=== PATIENT | female | born 1965 | race Caucasian/White ===

== ENCOUNTER → 2017-08-18 | Outpatient (CLI) | payer BC ==
--- NOTE | 2017-08-20 11:45 | MM ---
Reason for exam: screening (asymptomatic). Last mammogram was performed 1 year ago. History: Patient has history of other cancer at age 39 and had first child after 29. Physical Findings: A clinical breast exam by your physician is recommended on an annual basis and results should be correlated with mammographic findings. MG 3D Screening Mammo W/Cad Bilateral CC and MLO view(s) were taken. Prior study comparison: August 16, 2016, bilateral MG 3d screening mammo w/cad. December 05, 2010, bilateral digital screening mammo w/CAD. The breast tissue is extremely dense which could obscure a lesion on mammography. There is chronic nodularity bilaterally. No significant changes when compared with prior studies. ASSESSMENT: Benign, BI-RAD 2 RECOMMENDATION: Routine screening mammogram of both breasts in 1 year.
== END | disposition home or self-care (01) ==
LOC: RADMAMWWP 07:58
PROVIDERS: ATTEND Obstetrics & Gynecology
DX: Z12.31 Encounter for screening mammogram for malignant neoplasm of breast (principal)
CPT/HCPCS: 77063; G0202

== ENCOUNTER → 2020-03-28 | Outpatient (CLI) | payer BC ==
[2020-03-28 10:14] LABS: T4, Free (Free Thyroxine) 1.21 ng/dL (0.78-2.19)
--- NOTE | 2020-03-28 10:43 | MM ---
Reason for exam: clinical finding. Last mammogram was performed 2 years and 7 months ago. History: Patient has history of other cancer at age 39 and had first child at age 35. Took hormonal contraceptives for 5 years beginning at age 25. Indicated problem(s): pain in both breasts. Physical Findings: Nurse did not find any significant physical abnormalities on exam. MG 3D Diag Mammo W/Cad JERRICA Bilateral CC and MLO view(s) were taken. Prior study comparison: August 18, 2017, bilateral MG 3d screening mammo w/cad. August 16, 2016, bilateral MG 3d screening mammo w/cad. The breast tissue is heterogeneously dense. This may lower the sensitivity of mammography. Waxing and waning lesions consistent with cysts. No significant new findings when compared with previous films. These results were verbally communicated with the patient and result sheet given to the patient on 03/28/20. ASSESSMENT: Benign, BI-RAD 2 RECOMMENDATION: Routine screening mammogram of both breasts in 1 year. Manage patient on a clinical basis.
== END | disposition home or self-care (01) ==
LOC: RADMAMWWP 08:08
PROVIDERS: ATTEND Obstetrics & Gynecology
DX: N64.4 Mastodynia (principal); N63.10 Unspecified lump in the right breast, unspecified quadrant; N63.20 Unspecified lump in the left breast, unspecified quadrant; N93.8 Other specified abnormal uterine and vaginal bleeding; Z13.29 Encounter for screening for other suspected endocrine disorder
CPT/HCPCS: 77062; 77066; 84439; 84443

== ENCOUNTER → 2021-01-31 | Outpatient (CLI) | payer BC ==
--- NOTE | 2021-01-31 21:03 | CONS ---
CONSULTATION DATE OF SERVICE: 01/31/2021. 55-year-old lady has been evaluated in Sleep Center for loud snoring and possible obstructive sleep apnea-hypopnea syndrome. HISTORY OF PRESENT ILLNESS/SLEEP WAKE EVALUATION: SLEEP SCHEDULE: Patient's usual sleep schedule from 10 or 11 p.m. to 6:30/6:45 a.m. FALLING ASLEEP: No problems with falling asleep, although she has TV in bedroom. She sleeps in different positions including back and side. She increased loudness of her snoring recently. She wakes up from sleep 2 times with nocturia and grinding teeth. No history of hypnagogic hallucinations, sleep paralysis or cataplexy. Occasionally, she takes naps, usually Friday afternoons. [place] Sleepiness Scale is 4. PAST MEDICAL HISTORY: Hypothyroidism. Headaches. PAST SURGICAL HISTORY: Status post thyroidectomy for CA in 2004, status post D and C, status post . MEDICATIONS: Synthroid 88 mcg once a day. SOCIAL HISTORY: Negative for smoking. Alcohol consumption occasional. FAMILY HISTORY: Heart problems, hypertension, stroke, sinus problems, diabetes, acid reflux. REVIEW OF SYSTEMS: Snoring, started to be louder, some changes of menstrual periods. PHYSICAL EXAMINATION: GENERAL: lady without distress. BP 135/80, HR 84, RR 12, height 4 feet 11 inches, weight 121.8, temperature 97.9. Oxygen saturation at room air 98%. BMI 24.6. HEENT: PERRLA, EOMI. Evaluation of oropharynx showed tongue protrudes midline. Low position of soft palate. Mallampati 3. Neck 13-1/2 inches in circumference. NECK: Supple, no JVD. Thyroid is not palpable. LUNGS: Clear to percussion and to auscultation. Good air exchange. No wheezing or rhonchi. HEART: S1, S2 regular. No murmurs, gallops, or rubs. ABDOMEN: Soft and nontender. Bowel sounds are present. No organomegaly appreciated. EXTREMITIES: No clubbing or cyanosis. FOSTER CARE CASE MANAGER: Awake, alert, and oriented X3. Cranial nerves 2 to 7 intact. There is no fasciculation or atrophy. noted. No focal deficits observed. IMPRESSION: 1. Snoring, awakenings from sleep, low position of soft palate, episodes of sleepiness, obstructive sleep apnea-hypopnea syndrome. 2. History of thyroid carcinoma, status post thyroidectomy, on replacement with thyroid hormones. 3. Perimenopause. 4. Headaches. 5. Status post D and C, status post . PLAN: 1. Home sleep apnea test to check the patient breathing during sleep. 2. Following plan after reviewing the results of sleep study. 3. Sleep hygiene with regular time in bed for 7-1/2 to 8 hours. 4. No driving if feeling sleepiness. Thank you very much for referring this patient for consultation. Sincerely, Sami Murray MD, PhD, FAASM Diplomat of [employer] [employer] [place] [employer] Process Technician of [facility] [place] MMODL / IJN: [id number] /
== END ==
CPT/HCPCS: 99211

== ENCOUNTER → 2021-06-13 | Outpatient (CLI) | payer BC ==
--- NOTE | 2021-06-14 09:06 | SFUN ---
SLEEP CENTER FOLLOW UP NOTE DATE OF SERVICE: 06/13/2021 55-year-old lady has been followed in Sleep Center for treatment of obstructive sleep apnea-hypopnea syndrome. Recently the patient had a home sleep apnea test which showed moderate but very close to severe obstructive sleep apnea-hypopnea syndrome and I discussed results of the sleep study with the patient in detail. Today is his 1st her first visit after she was started on treatment with AutoPAP and she is able to use equipment every night for the whole night. Does not snore with the machine, feels better. She has some slight irritation from the full-face mask on her skin of the face. [place] Sleepiness Scale today is 4 which is absolutely normal. I checked her CPAP unit. Range of the pressure 5-15. Average pressure 11.8. Usage 29/30 nights for more than 4 hours with average usage 7.1 hours. Leak is only 2 L/minute. Apnea-hypopnea index is 2.3. CURRENT MEDICATIONS: Synthroid 88 mcg once a day. PHYSICAL EXAMINATION: GENERAL: Patient in no distress. BP 128/82, HR 63, weight 120.8, temperature 97.8, oxygen saturation at room air 96%. Oropharynx low position of soft palate. Mallampati 3. NECK: Supple, no JVD. Thyroid is not palpable. LUNGS: Clear to percussion and to auscultation. Good air exchange. No wheezing or rhonchi. HEART: S1, S2 regular. No murmurs, gallops, or rubs. ABDOMEN: Soft and nontender. Bowel sounds are present. No organomegaly appreciated. EXTREMITIES: No clubbing or cyanosis. WRECKING MECHANIC: Awake, alert, and oriented X3. Cranial nerves 2 to 7 intact. There is no fasciculation or atrophy. noted. No focal deficits observed. IMPRESSION: 1. Moderate close to severe obstructive sleep apnea-hypopnea syndrome. Apnea-hypopnea index 29.5 with oxygen desaturation to 76% on full control with CPAP. The patient demonstrated 100% compliance with treatment benefitting from treatment. 2. Slight discomfort from full-face mask. 3. History of thyroid CA. 4. History of headaches. 5. Premenopausal. 6. Status post . 7. Status post dilatation and curettage. PLAN: 1. Prescription for nasal pillow mask AirFit P10 to try. 2. I discussed with the patient position of the machine at night and to be sure that she takes off her water out in the morning from the humidifier and let it dry. 3. Patient will continue to use PAP equipment every night for the whole night. 4. Sleep hygiene with regular time in bed for at least 7-1/2 to 8 hours. 5. Precautions related to driving. No driving if feeling sleepiness. 6. I will maintain all necessary prescription for PAP supplies including mask, tube, filters. 7. Watching weight. 8. Follow-up visit in 6 months or earlier if patient has any problems. I spent with the patient and documentation 30 minutes. Thank you very much for allowing me to participate in management of your patient. Sincerely, Sami Murray MD, PhD, FAASM Diplomat of [place] [employer] Sleep Medicine Board of [place] [employer] Medicine Evs Manager of [facility] [place] MMJANIS / SAMMI: [id number] /
== END ==
LOC: SLEEP 11:40
PROVIDERS: ATTEND Internal Medicine
DX: G47.33 Obstructive sleep apnea (adult) (pediatric) (principal); G47.36 Sleep related hypoventilation in conditions classified elsewhere; Z85.850 Personal history of malignant neoplasm of thyroid; Z87.59 Personal history of other complications of pregnancy, childbirth and the puerperium; Z99.89 Dependence on other enabling machines and devices

== ENCOUNTER → 2021-12-12 | Outpatient (CLI) | payer BC ==
--- NOTE | 2021-12-12 11:17 | SFUN ---
SLEEP CENTER FOLLOW UP NOTE DATE OF VISIT: 12/12/2021 This 56-year-old lady has been followed in Sleep Center for treatment of obstructive sleep apnea-hypopnea syndrome. The patient continues to use CPAP equipment every night for the whole night. Recently her mask was changed to a nasal mask and the patient feels more comfortable with this type of mask. This is the second visit after the patient was started on treatment with CPAP. [place] Sleepiness Scale is 5, which is normal. I checked her CPAP unit. It is in automatic regimen. Range of the pressure is 5 to 15, average pressure 9.9. Usage is 29/30 nights and 28/30 nights for more than 4 hours, average 7.1 hours per night, which is very good compliance. Leak is only 1 L/minute. Apnea-hypopnea index is 2.3, which is totally normal. MEDICATIONS: Synthroid 88 mcg 6 times per week. PHYSICAL EXAMINATION: GENERAL: Pleasant patient in no distress. VITAL SIGNS: BP 122/83, HR 83, RR 14, weight 116.4 pounds, temperature 98, oxygen saturation at room air 96%. HEENT: PERRLA, EOMI, evaluation of oropharynx showed tongue protrudes midline. Low position of soft palate; Mallampati III. NECK: Supple, no JVD. Thyroid is not palpable. LUNGS: Clear to percussion and to auscultation. Good air exchange. No wheezing or rhonchi. HEART: S1, S2 regular. No murmurs, gallops, or rubs. ABDOMEN: Soft and nontender. Bowel sounds are present. No organomegaly appreciated. EXTREMITIES: No clubbing or cyanosis. COATING AND EMBOSSING UNIT OPERATOR: Awake, alert, and oriented X3. Cranial nerves 2 to 7 intact. There is no fasciculation or atrophy. noted. No focal deficits observed. IMPRESSION: 1. Moderate, close to severe obstructive sleep apnea-hypopnea syndrome; AHI 29.5 with oxygen desaturation to 76%. The patient demonstrated 100% compliance with treatment. Normal respiration on CPAP, benefitting from treatment. 2. History of thyroid carcinoma. 3. History of headaches. 4. Status post . 5. Status post D and C. 6. Perimenopausal. PLAN: 1. Patient will continue to use PAP equipment every night for the whole night. 2. Sleep hygiene with regular time in bed for at least 7-1/2 to 8 hours. 3. Precautions related to driving. No driving if feeling sleepiness. 4. I will maintain all necessary prescription for PAP supplies including mask, tube, filters. 5. Watching weight. 6. Follow-up visit in 6 months or earlier if patient has any problems. Thank you very much for allowing me to participate in the management of your patient. Sincerely, Sami Murray MD, PhD, FAASM Diplomat of [place] [employer] Sleep Medicine Board of [place] [employer] of Internal Medicine Iuss Analyst of [facility] [place] MMODL / SCOOBYN: [id number] /
== END ==
LOC: SLEEP 09:59
PROVIDERS: ATTEND Internal Medicine
DX: G47.33 Obstructive sleep apnea (adult) (pediatric) (principal); Z85.850 Personal history of malignant neoplasm of thyroid; Z87.59 Personal history of other complications of pregnancy, childbirth and the puerperium; Z98.890 Other specified postprocedural states; Z78.0 Asymptomatic menopausal state; Z87.898 Personal history of other specified conditions

== ENCOUNTER → 2022-03-28 | Outpatient (CLI) | payer BC ==
--- NOTE | 2022-03-29 08:25 | CT ---
EXAMINATION TYPE: CT abdomen pelvis wo con DATE OF EXAM: 03/28/2022 HISTORY: Calculus of urinary tract CT DLP: 239.5 mGycm. Automated Exposure Control for Dose Reduction was Utilized. TECHNIQUE: CT scan of the abdomen and pelvis is performed without oral or IV contrast. COMPARISON: NONE FINDINGS: Within the limitations of a non-contrast study, the following observations are made. LUNG BASES: No significant abnormality is appreciated. LIVER/GB: No significant abnormality is appreciated. PANCREAS: No significant abnormality is seen. SPLEEN: No significant abnormality is seen. ADRENALS: No significant abnormality is seen. KIDNEYS: There is 1 to 2 mm punctate calculus lower pole left kidney axial image 50. No right-sided n ephrolithiasis. No hydronephrosis or obstructing ureter calculi seen bilaterally. Left-sided pelvic p hleboliths. No intraluminal calculus in the bladder. BOWEL: Normal-appearing appendix. No suspicious small or large bowel dilatation. GENITAL ORGANS: No gross abnormality seen. LYMPH NODES: No greater than 1cm abdominal or pelvic lymph nodes are appreciated. OSSEOUS STRUCTURES: No significant abnormality is seen. OTHER: No significant additional abnormality is seen. IMPRESSION: There is 1 to 2 mm punctate nonobstructing left renal calculus. No right-sided renal calc abigail. No hydronephrosis or obstructing ureteral calculi bilaterally.
== END | disposition home or self-care (01) ==
LOC: RADCTMAIN 18:37
PROVIDERS: ATTEND Family Medicine
DX: N20.0 Calculus of kidney (principal)
CPT/HCPCS: 74176

== ENCOUNTER → 2022-05-28 | Outpatient (CLI) | payer BC ==
--- NOTE | 2022-05-28 13:23 | BD ---
EXAMINATION TYPE: Axial Bone Density DATE OF EXAM: 05/28/2022 COMPARISON: NONE CLINICAL HISTORY: 56 years year old Female. ICD-10 CODE: SCREENING OSTEOPOROSIS [id number] Height: 4'10 Weight: 118 FRAX RISK QUESTIONS: Secondary Osteoporosis: RISK FACTORS HISTORY OF: If Premenopausal, do you have irregular periods: y MEDICATIONS: Thyroid Medications: Which medication: Synthroid How Lon Additional Medications: cholesterol Additional History: thyroid cancer 2004, radiation EXAM MEASUREMENTS: Bone mineral densitometry was performed using the [employer] System. Bone mineral density as measured about the Lumbar spine is: ----- L1-L4(G/cm2): 0.924 T Score Values are as follows: ----- L1: -1.7 ----- L2: -2.3 ----- L3: -2.2 ----- L4: -2.5 ----- L1-L4: -2.1 Bone mineral density about the R hip (g/cm2): 0.657 Bone mineral density about the L hip (g/cm2): 0.671 T Score values are as follows: -----R Neck: -2.7 -----L Neck: -2.6 -----R Total: -2.1 -----L Total: -1.9 FRAX%s: The graph provided illustrates a 11.8%chance for a major osteoporotic fx and a 2.7% chance fo r the hips probability for fx in 10 years time. IMPRESSION: Osteopenia (T Score between -2.5 and -1). There is slightly increased risk of fracture and the patient may be considered for treatment. Re-Screen 2-5 years. NOTE: T-SCORE=SD OF THE YOUNG ADULT MEAN.
--- NOTE | 2022-05-29 19:39 | MM ---
Reason for Exam: Screening (asymptomatic). Last mammogram was performed 2 year(s) and 2 month(s) ago. Patient History: Menarche at age 12. First Full-Term at age 35. Late child-bearing (after 29). Other cancer, age 39. Hormonal Contraceptives for 5 years from age 25 until age 30. Risk Values: [place] 5 year model risk: 1.8%. NCI Lifetime model risk: 10.7%. Prior Study Comparison: 08/16/2016 Bilateral Screening Mammogram, [facility]. 08/18/2017 Bilateral Screening Mammogram, [facility]. 03/28/2020 Bilateral Diagnostic Mammogram, [facility]. Tissue Density: The breast tissue is heterogeneously dense. This may lower the sensitivity of mammography. Findings: Analyzed By CAD. No significant change from prior exams. Overall Assessment: Negative, BI-RAD 1 Management: Screening Mammogram of both breasts. 1. Patient should continue monthly self breast exams. 2. A clinical breast exam by your physician is recommended on an annual basis. 3. This exam should not preclude additional follow-up of suspicious palpable abnormalities. Electronically signed and approved by: Manasa Sage M.D. Radiologist
== END | disposition home or self-care (01) ==
LOC: RADMAMWWP 10:56
PROVIDERS: ATTEND Family Medicine
DX: Z12.31 Encounter for screening mammogram for malignant neoplasm of breast (principal); Z13.820 Encounter for screening for osteoporosis; M81.0 Age-related osteoporosis without current pathological fracture; Z85.850 Personal history of malignant neoplasm of thyroid
CPT/HCPCS: 77063; 77067; 77080

== ENCOUNTER → 2022-07-31 | Outpatient (CLI) | payer BC ==
--- NOTE | 2022-07-31 11:35 | P.PN ---
Subjective DATE: 07/31/2022 FOLLOW UP VISIT. Patient with obstructive sleep apnea hypopnea syndrome return to sleep center for follow-up visit. Information from previous visit have been reviewed. Patient is using PAP equipment every night for the whole night, getting PAP supplies in time. The patient does not have significant problems with the mask, PAP unit and humidification. [place] sleepiness scale is 4, which is normal. I checked information from PAP unit. PAP unit pressure 5-15, average 10.9 cm H2O. Usage is 100 % for more then 4 hours, average 7.7 hours per night. Leak is 0 l/m, which is perfect. Apnea Hypopnea Index is to, which is normal. MEDICATIONS:1. Rosuvastatin 10 mg once a day 2. Synthroid 75 g once a day During physical exam: GENERAL: A pleasant patient without any distress. VITAL SIGNS: BP 133/88, HR 66, RR 16, weight 122.4, temperature 96.9, oxygen sat uration at room air 98 % . HEENT: PERRLA, EOMI.low position of soft palate, Mallapati 3 . NECK: Supple. No JVD. LUNGS: Clear to percussion and to auscultation. Good air exchange. No wheezing or rhonchi. HEART: S1, S2 regular. ABDOMEN: Soft and nontender.[] EXTREMITIES: No clubbing or cyanosis. PRINTING AGENT: Awake, alert, and oriented x3. No focal deficit. Impressions: 1. Obstructive sleep apnea-hypopnea syndrome. Patient demonstrated great compliance with treatment, benefiting from treatment. 2. History of thyroid CA. 3. History of headaches, no complaints in the present time. 4. Status post . 5. Status post D and C. 6. Perimenopausal. Plan: 1. Continue using PAP equipment every night for the whole night. 2. To change air filter at least 1-2 times per month. 3. PAP unit should stay lower then position of the head. 4. Advised patient to remove all remaining water from humidifier canister daily and make it dry after each usage. Refill canister with fresh distilled water before each usage. 5. Sleep hygiene with regular time in bed for at least 8 hours. 6. Precautions related to driving. No driving if feel any sleepiness. 7. I will maintain prescription for PAP supplies including mask, tube, filters. 8. Follow up visit in 6 months or earlier if patient has any problems. 9. Watching weight. 10. We discussed adjustments of humidity to prevent condensation of water in the mask. Patient may have additional cover for the mask to prevent condensation and also may consider to slightly increased temperature in bedroom. Thank you very much for allowing me to participate in the management of your patient. Sami Murray MD, PhD, FAASM. Diplomat of [place] [employer], Sleep Medicine Board by [place] [employer] Medicine Installer [employer] of [facility] [place]
--- NOTE | 2022-07-31 11:35 | P.PN ---
Subjective DATE: 07/31/2022 FOLLOW UP VISIT. Patient with obstructive sleep apnea hypopnea syndrome return to sleep center for follow-up visit. Information from previous visit have been reviewed. Patient is using PAP equipment every night for the whole night, getting PAP supplies in time. The patient does not have significant problems with the mask, PAP unit and humidification. [place] sleepiness scale is 4, which is normal. I checked information from PAP unit. PAP unit pressure 5-15, average 10.9 cm H2O. Usage is 100 % for more then 4 hours, average 7.7 hours per night. Leak is 0 l/m, which is perfect. Apnea Hypopnea Index is to, which is normal. MEDICATIONS:1. Rosuvastatin 10 mg once a day 2. Synthroid 75 g once a day During physical exam: GENERAL: A pleasant patient without any distress. VITAL SIGNS: BP 133/88, HR 66, RR 16, weight 122.4, temperature 96.9, oxygen sat uration at room air 98 % . HEENT: PERRLA, EOMI.low position of soft palate, Mallapati 3 . NECK: Supple. No JVD. LUNGS: Clear to percussion and to auscultation. Good air exchange. No wheezing or rhonchi. HEART: S1, S2 regular. ABDOMEN: Soft and nontender.[] EXTREMITIES: No clubbing or cyanosis. FIRE PROTECTION SPECIALIST: Awake, alert, and oriented x3. No focal deficit. Impressions: 1. Obstructive sleep apnea-hypopnea syndrome. Patient demonstrated great compliance with treatment, benefiting from treatment. 2. History of thyroid CA. 3. History of headaches, no complaints in the present time. 4. Status post . 5. Status post D and C. 6. Perimenopausal. Plan: 1. Continue using PAP equipment every night for the whole night. 2. To change air filter at least 1-2 times per month. 3. PAP unit should stay lower then position of the head. 4. Advised patient to remove all remaining water from humidifier canister daily and make it dry after each usage. Refill canister with fresh distilled water before each usage. 5. Sleep hygiene with regular time in bed for at least 8 hours. 6. Precautions related to driving. No driving if feel any sleepiness. 7. I will maintain prescription for PAP supplies including mask, tube, filters. 8. Follow up visit in 6 months or earlier if patient has any problems. 9. Watching weight. 10. We discussed adjustments of humidity to prevent condensation of water in the mask. Patient may have additional cover for the mask to prevent condensation and also may consider to slightly increased temperature in bedroom. Thank you very much for allowing me to participate in the management of your patient. Sami Murray MD, PhD, FAASM. Diplomat of [place] Board of Sleep Medicine, Sleep Medicine Board by [place] [employer] Medicine Grab Hooker of [facility] [place]
== END ==
LOC: SLEEP 10:18
PROVIDERS: ATTEND Internal Medicine
DX: G47.33 Obstructive sleep apnea (adult) (pediatric) (principal); R51.9 Headache, unspecified; Z78.0 Asymptomatic menopausal state; Z85.850 Personal history of malignant neoplasm of thyroid; Z99.89 Dependence on other enabling machines and devices

== ENCOUNTER → 2023-01-29 | Outpatient (CLI) | payer BC ==
--- NOTE | 2023-01-29 11:49 | P.PN ---
Subjective DATE: 01/29/2023 FOLLOW UP VISIT. Patient with obstructive sleep apnea hypopnea syndrome return to sleep center for follow-up visit. Information from previous visit have been reviewed. Patient is using PAP equipment every night for the whole night, getting PAP supplies in time. The patient does not have significant problems with the mask, PAP unit and humidification. [place] sleepiness scale is 6, which is normal. I checked information from PAP unit and explaining to the patient. PAP unit pressure 5-15, average 11.4 cm H2O. Usage is 100 % for more then 4 hours, average 7.3 hours per night. Leak is perfect 1 l/m. Apnea Hypopnea Index is 2.1, which is normal. MEDICATIONS:1. Synthroid 75 g half of the tablet once a day 2., Rosuvastatin 10 mg once a day During physical exam: GENERAL: A pleasant patient without any distress. VITAL SIGNS: BP 137/79, HR 70, RR 12, weight 122.2, body mass index 25.4, temperature 98.3, oxygen saturation at room air 98 % . HEENT: PERRLA, EOMI.low position of soft palate, Mallapati 3. NECK: Supple. No JVD. LUNGS: Clear to percussion and to auscultation. Good air exchange. No wheezing or rhonchi. HEART: S1, S2 regular. ABDOMEN: Soft and nontender.[] EXTREMITIES: No clubbing or cyanosis. CLINICAL EDUCATION ACADEMIC COORDINATOR: Awake, alert, and oriented x3. No focal deficit. Impressions: 1. Obstructive sleep apnea-hypopnea syndrome. Patient demonstrated great compliance with treatment, benefiting from treatment. 2. History of thyroid CA. 3. History of headaches in the past. 4. Status post . 5. Status post D&C. Plan: 1. Continue using PAP equipment every night for the whole night. 2. To change air filter at least 1-2 times per month. 3. PAP unit should stay lower then position of the head. 4. Advised patient to remove all remaining water from humidifier canister daily and make it dry after each usage. Refill canister with fresh distilled water before each usage. 5. Sleep hygiene with regular time in bed for at least 8 hours. 6. Precautions related to driving. No driving if feel any sleepiness. 7. I will maintain prescription for PAP supplies including mask, tube, filters. 8. Watching weight. 9. Follow up visit in 6 months or earlier if patient has any problems. Thank you very much for allowing me to participate in the management of your patient. Sami Murray MD, PhD, FAASM. Diplomat of [place] Board of Sleep Medicine, Sleep Medicine Board by [place] [employer] Internal Medicine Account Manager Relief of [facility] [place]
== END ==
LOC: SLEEP 10:54
PROVIDERS: ATTEND Internal Medicine
DX: G47.33 Obstructive sleep apnea (adult) (pediatric) (principal); Z79.899 Other long term (current) drug therapy; Z85.850 Personal history of malignant neoplasm of thyroid; Z98.890 Other specified postprocedural states; Z99.89 Dependence on other enabling machines and devices
CPT/HCPCS: 99212

== ENCOUNTER → 2023-08-14 | Outpatient (CLI) | payer BC ==
--- NOTE | 2023-08-14 10:52 | P.PN ---
Subjective DATE: 08/14/2023 FOLLOW UP VISIT. Patient with obstructive sleep apnea hypopnea syndrome return to sleep center for follow-up visit. Information from previous visit have been reviewed. Patient is using PAP equipment every night for the whole night, getting PAP supplies in time. The patient does not have significant problems with the mask, PAP unit and humidification. [place] sleepiness scale is 4 which is normal. I checked information from PAP unit. PAP unit pressure 5-15, average 11.7 cm H2O. Usage is 98 % for more then 4 hours, average 7.1 hours per night. Leak is perfect 0 l/m. Apnea Hypopnea Index is 1.9, which is normal. MEDICATIONS:1. Synthroid 75 g once a day 2. , Rosuvastatin 10 mg once a day During physical exam: GENERAL: A pleasant patient without any distress. VITAL SIGNS: BP 157/92, HR 72, RR 16 , weight 123.4, temperature 98.6, oxygen saturation at room air 97 % . HEENT: PERRLA, EOMI.low position of soft palate, Mallapati 3 . NECK: Supple. No JVD. LUNGS: Clear to percussion and to auscultation. Good air exchange. No wheezing or rhonchi. HEART: S1, S2 regular. ABDOMEN: Soft and nontender.[] EXTREMITIES: No clubbing or cyanosis. IRRADIATED FUEL HANDLER: Awake, alert, and oriented x3. No focal deficit. Impressions: 1. Obstructive sleep apnea-hypopnea syndrome. Patient demonstrated great compliance with treatment, benefiting from treatment. 2. History of thyroid cancer, status post treatment, on thyroid supplement. 3. Blood pressure increased today in the office. 4. History of headaches in the past. 5. Status post . 6. Status post D&C. Plan: 1. Continue using PAP equipment every night for the whole night. 2. To change air filter at least 1-2 times per month. 3. PAP unit should stay lower then position of the head. 4. Advised patient to remove all remaining water from humidifier canister daily and make it dry after each usage. Refill canister with fresh distilled water before each usage. 5. Sleep hygiene with regular time in bed for at least 8 hours. 6. Precautions related to driving. No driving if feel any sleepiness. 7. I will maintain prescription for PAP supplies including mask, tube, filters. 8. Follow up visit in 6 months or earlier if patient has any problems. 9. Watching weight. 10. Monitoring blood pressure. 11. Low sodium diet. Thank you very much for allowing me to participate in the management of your patient. Sami Murray MD, PhD, FAASM. Diplomat of [place] [employer], Sleep Medicine Board by [place] [employer] Cable Splicer Assistant of [facility] [place]
== END ==
LOC: 3 N SLEEP 10:20
PROVIDERS: ATTEND Internal Medicine
DX: G47.33 Obstructive sleep apnea (adult) (pediatric) (principal); R03.0 Elevated blood-pressure reading, without diagnosis of hypertension; Z85.850 Personal history of malignant neoplasm of thyroid; Z98.890 Other specified postprocedural states; Z99.89 Dependence on other enabling machines and devices; Z79.899 Other long term (current) drug therapy; Z86.69 Personal history of other diseases of the nervous system and sense organs
CPT/HCPCS: 99212

== ENCOUNTER → 2024-03-04 | Outpatient (CLI) | payer BC ==
--- NOTE | 2024-03-04 10:48 | P.PROGSL ---
Subjective DATE: 03/04/2024 FOLLOW UP VISIT. Patient with obstructive sleep apnea hypopnea syndrome return to sleep center for follow-up visit. Information from previous visit have been reviewed. Patient is using PAP equipment every night for the whole night, getting PAP supplies in time. The patient does not have significant problems with the mask, PAP unit and humidification. [place] sleepiness scale is 1, which is normal. I checked information from PAP unit. PAP unit pressure 5-15, average 11.5 cm H2O. Usage is 100% for more then 4 hours, average 7 hours per night. Leak is 0 l/m, which is in perfect range. Apnea Hypopnea Index is 1.9, which is normal. MEDICATIONS: Please see below. During physical exam: GENERAL: A pleasant patient without any distress. VITAL SIGNS: Please see below,weight 124 pounds, BMI 25.9 . HEENT: PERRLA, EOMI.low position of soft palate, Mallapati 3 . NECK: Supple. No JVD. LUNGS: Clear to percussion and to auscultation. Good air exchange. No wheezing or rhonchi. HEART: S1, S2 regular. ABDOMEN: Soft and nontender.[] EXTREMITIES: No clubbing or cyanosis. KITCHENHAND: Awake, alert, and oriented x3. No focal deficit. Impressions: 1. Obstructive sleep apnea-hypopnea syndrome. Patient demonstrated great compliance with treatment, benefiting from treatment. 2. History of thyroid cancer, status posttreatment, on Synthroid supplement. 3. Hyperlipidemia. 4. History of headaches in the past. 5. Status post D&C. 6. Status post . Plan: 1. Continue using PAP equipment every night for the whole night. 2. To change air filter at least 1-2 times per month. 3. PAP unit should stay lower then position of the head. 4. Advised patient to remove all remaining water from humidifier canister daily and make it dry after each usage. Refill canister with fresh distilled water before each usage. 5. Sleep hygiene with regular time in bed for at least 8 hours. 6. Precautions related to driving. No driving if feel any sleepiness. 7. I will maintain prescription for PAP supplies including mask, tube, filters. 8. Follow up visit in 6 months or earlier if patient has any problems. 9. Watching weight. Thank you very much for allowing me to participate in the management of your patient. Sami Murray MD, PhD, FAASM. Diplomat of [place] [employer], Sleep Medicine Board by [place] [employer] Radio Mechanic Apprentice of [facility] [place] Objective - Vital Signs Vital Signs: Vital Signs Temp 97.9 F 03/04/24 10:38 Pulse 72 03/04/24 10:38 Resp 16 03/04/24 10:38 BP 131/88 03/04/24 10:38 Pulse Ox 96 03/04/24 10:38 FiO2 Intake & Output 03/03/24 03/04/24 03/04/24 18:59 06:59 18:59 Weight 56.245 kg Home Medications: Home Medications Medication Instructions Recorded Confirmed Type Levothyroxine Sodium [Synthroid] 75 mcg PO DAILY 03/04/24 03/04/24 History Rosuvastatin [Crestor] 10 mg PO DAILY 03/04/24 03/04/24 History
[2024-03-04 11:13] VITALS: BP 131/88; PULSE 72; RESP 16; TEMP 97.9
== END ==
LOC: 3 N SLEEP 10:25
PROVIDERS: ATTEND Internal Medicine
DX: G47.33 Obstructive sleep apnea (adult) (pediatric) (principal); E78.5 Hyperlipidemia, unspecified; Z98.890 Other specified postprocedural states; Z85.850 Personal history of malignant neoplasm of thyroid; Z87.39 Personal history of other diseases of the musculoskeletal system and connective tissue; Z99.89 Dependence on other enabling machines and devices
CPT/HCPCS: 99212

== ENCOUNTER → 2024-10-08 | Outpatient (CLI) | payer BC ==
--- NOTE | 2024-10-08 12:53 | BD ---
EXAMINATION TYPE: Axial Bone Density DATE OF EXAM: 10/08/2024 CLINICAL HISTORY: 59 years old Female. ICD-10 CODE: Z78.0 ASYMPTOMATIC LIGIAU , Additional History: Height: 57 1/2 in Weight: 122 FRAX RISK QUESTIONS: Alcohol (3 or more units per day): no Family History (Parent hip fracture): no Glucocorticoids (More than 3mos): no (Ex: prednisone, prednisolone, methylprednisolone, dexamethasone, and hydrocortisone). History of Fracture in Adulthood: no Secondary Osteoporosis: 1. Type 1 Diabetes: no 2. Hyperthyroidism: thyroid cancer / thyroid removed 2004 3. Menopause before 45: no 4. Malnutrition: no 5. Chronic liver disease: no Rheumatoid Arthritis: no Current Tobacco Use: no RISK FACTORS HISTORY OF: Surgery to Spine/Hip(right/left)/Wrist (right/left): no MEDICATIONS: Thyroid Medications: yes Which medication: synthroid How Long: since 2004 Osteoporosis Medications: none EXAM MEASUREMENTS: Bone mineral densitometry was performed using the [employer] System. Bone mineral density as measured about the Lumbar spine is: ----- L1-L4(G/cm2): 0.888 T Score Values are as follows: ----- L1: -1.9 ----- L2: -2.4 ----- L3: -2.3 ----- L4: -3.0 ----- L1-L4: -2.4 Z Score Values are as follows: ----- L1: -0.4 ----- L2: -0.9 ----- L3: -0.8 ----- L4: -1.5 ----- L1-L4: -0.9 Bone mineral density has: decreased -3.9 % since study of: 2021 Bone mineral density about the R hip (g/cm2): 0.656 Bone mineral density about the L hip (g/cm2): 0.667 T Score values are as follows: -----R Neck: -2.8 -----L Neck: -2.7 -----R Total: -2.0 -----L Total: -1.9 Z Score values are as follows: -----R Neck: -1.3 -----L Neck: -1.2 -----R Total: -0.9 -----L Total: -0.7 Bone mineral density has: 0 percent change % since study of: 2021 FRAX%s: The graph provided illustrates a 13.1 % chance for a major osteoporotic fx and a 3.0 % chance for the hips probability for fx in 10 years time. IMPRESSION: Osteoporosis (T Score less than -2.5). There is increased fracture risk and therapy is usually indicated based on age. Re-Screen 1-2 years. NOTE: T-SCORE=SD OF THE YOUNG ADULT MEAN. [facility], , 10/08/2024 12:51 PM
--- NOTE | 2024-10-14 17:46 | MM ---
Reason for Exam: Screening (asymptomatic). Last mammogram was performed 2 year(s) and 4 month(s) ago. Patient History: Menarche at age 12. First Full-Term at age 35. Late child-bearing (after 30). Postmenopausal. Patient has history of breast feeding. Other cancer, age 39. Hormonal Contraceptives for 5 years from age 25 until age 30. Risk Values: Camille 5 year model risk: 2.0%. NCI Lifetime model risk: 10.0%. Prior Study Comparison: 08/18/2017 Bilateral Screening Mammogram, [facility]. 03/28/2020 Bilateral Diagnostic Mammogram, [facility]. 05/28/2022 Bilateral MG 3D screening mammo w/cad, [facility]. Tissue Density: The breasts are heterogeneously dense, which may obscure small masses. Findings: Analyzed By CAD. There is no suspicious group of microcalcifications or new suspicious mass in either breast. Overall Assessment: Benign, BI-RAD 2 Management: Screening Mammogram of both breasts in 1 year. . Patient should continue monthly self-breast exams. A clinical breast exam by your physician is recommended on an annual basis. This exam should not preclude additional follow-up of suspicious palpable abnormalities. Note on Camille scores and lifetime risk: 1. A Camille score greater than 3% is considered moderate risk. If this is the case, consider specialist referral to assess eligibility for a risk reducing agent. 2. If overall lifetime risk for the development of breast cancer is 20% or higher, the patient may qualify for future screening with alternating mammogram and breast MRI. [facility], , 10/14/2024 5:44 PM. Electronically signed and approved by: Manasa Sage M.D. Radiologist
== END | disposition home or self-care (01) ==
LOC: RADBDWWP 09:56
PROVIDERS: ATTEND Surgery
DX: Z12.31 Encounter for screening mammogram for malignant neoplasm of breast (principal); R92.333 Mammographic heterogeneous density, bilateral breasts; M81.0 Age-related osteoporosis without current pathological fracture; Z78.0 Asymptomatic menopausal state
CPT/HCPCS: 77063; 77067; 77080

== ENCOUNTER → 2024-11-04 | Outpatient (CLI) | payer BC ==
[2024-11-04 10:26] VITALS: BP 142/85; PULSE 70; RESP 16; TEMP 98
--- NOTE | 2024-11-04 11:04 | P.PROGSL ---
Subjective DATE: 07/05/2025 FOLLOW UP VISIT. Patient with obstructive sleep apnea hypopnea syndrome return to sleep center for follow-up visit. Information from previous visit have been reviewed. Patient is using PAP equipment every night for the whole night, getting PAP supplies in time. The patient does not have significant problems with the mask, PAP unit and humidification. [place] sleepiness scale is 4, which is normal. I checked information from PAP unit. PAP unit pressure 5-15, average 11.8 cm H2O. Usage is 100% for more then 4 hours, average 7.8 hours per night. Leak is 0 l/m, which is in perfect range. Apnea Hypopnea Index is 2.0, which is normal. MEDICATIONS have been reviewed, please see below. During physical exam: GENERAL: A pleasant patient without any distress. VITAL SIGNS: Please see below, weight is 125 lbs. HEENT: PERRLA, EOMI.low position of soft palate, Mallapati 3. NECK: Supple. No JVD. LUNGS: Clear to percussion and to auscultation. Good air exchange. No wheezing or rhonchi. HEART: S1, S2 regular. ABDOMEN: Soft and nontender.[] EXTREMITIES: No clubbing or cyanosis. ORACLE APEX DEVELOPER: Awake, alert, and oriented x3. No focal deficit. Impressions: 1. Obstructive sleep apnea-hypopnea syndrome. Patient demonstrated great compliance with treatment, benefiting from treatment. 2. Status post treatment of thyroid cancer. 3. Hyperlipidemia. 4. History of headaches. 5. Status post . 6. Status post D&C. Plan: 1. Continue using PAP equipment every night for the whole night. 2. Sleep hygiene with regular time in bed for at least 7.5-8 hours 3. PAP unit should stay lower then position of the head. 4. Advised patient to remove all remaining water from humidifier canister daily and make it dry after each usage. Refill canister with fresh distilled water before each usage. 5. Watching weight. 6. Precautions related to driving. No driving if feel any sleepiness. 7. I will maintain prescription for PAP supplies including mask, tube, filters. 8. Follow up visit in 8 months or earlier if patient has any problems. Thank you very much for allowing me to participate in the management of your patient. Sami Murray MD, PhD, FAASM. Diplomat of [place] [employer] Sleep [employer], Sleep Medicine Board by [place] [employer] Medicine Field Consultant of [facility] [place] Objective - Vital Signs Vital Signs: Vital Signs Temp 98 F 11/04/24 10:25 Pulse 70 11/04/24 10:25 Resp 16 11/04/24 10:25 BP 142/85 11/04/24 10:25 Pulse Ox 97 11/04/24 10:25 FiO2 Intake & Output 11/03/24 11/04/24 11/04/24 18:59 06:59 18:59 Weight 56.699 kg Home Medications: Home Medications Medication Instructions Recorded Confirmed Type Levothyroxine Sodium [Synthroid] 75 mcg PO DAILY 03/04/24 11/04/24 History Rosuvastatin [Crestor] 10 mg PO DAILY 03/04/24 11/04/24 History
== END ==
LOC: 3 N SLEEP 10:17
PROVIDERS: ATTEND Internal Medicine
DX: G47.33 Obstructive sleep apnea (adult) (pediatric) (principal); E78.5 Hyperlipidemia, unspecified; Z85.850 Personal history of malignant neoplasm of thyroid; Z86.69 Personal history of other diseases of the nervous system and sense organs; Z98.890 Other specified postprocedural states; Z99.89 Dependence on other enabling machines and devices
CPT/HCPCS: 99212